=== PATIENT | male | born 1945 | race Caucasian/White ===

== ENCOUNTER 2024-03-26 09:05 | Outpatient (AMB) | payer OTHER, SELFPAY ==
--- NOTE | 2024-03-26 09:14 | MHC.OFFVIS ---
Vital Signs 03/26/24 09:17 Height 6 ft 1 in Weight 185 lb BMI 24.4 BP 106/68 Blood Pressure Location Rt brachial Position Sitting Respiration 16 Pulse 68 Pulse Source Pulse Oximeter Pulse Oximetry (%) 98 Oxygen Delivery Method Room Air Intake Visit Reasons: ENP-Cognitive Decline Intake Note: New pt presents to the office for consultation for cognitive decline. 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 The patient reports short term memory issues atleast for 1 year now.He has trouble with remembering appointments. 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 He drives OK. His helps with directions. He is OK with taking medications. He is independent in ADLs.His daughter take scare of his finances. 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 Both parents had dementia. 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 Colon polyp Actinic keratosis Family History Mother Cancer Father Dementia Social History Alcohol intake: current Alcohol intake frequency: holidays/special occasions only Patient Tobacco Use Status: Never used Tobacco Review of Systems Neuro Reports confusion Psych Reports confusion Physical Exam Vital Signs: Last Vital Signs Pulse 68 03/26/24 09:17 Resp 16 03/26/24 09:17 BP 106/68 03/26/24 09:17 Pulse Ox 98 03/26/24 09:17 Oxygen Delivery Method Room Air 03/26/24 09:17 BMI result Body Mass Index 24.4 Const General: cooperative, healthy appearing, comfortable and confusion Nutritional Appearance: average body habitus Orientation/consciousness: confusion Eyes Pupils: Equal, round and reactive pupils present Neck Neck: Yes no meningeal signs Neuro Other: MOCA 16 General: tone normal, moves all extremities, no meningeal signs, no focal motor deficits and confusion Cranial nerves: Yes Equal, round and reactive pupils present, Yes Bilaterally intact EOM present, Yes Nystagmus not present, Yes Normal facial strength present, Yes Midline tongue present, Yes Symmetric palate elevation present, Yes Ability to bilaterally rotate head present and Yes Ability to bilaterally elevate shoulders present Cognition (Neuro): abnormal cognition Gait exam (Neuro): Antalgic gait present Motor exam (neuro): 5/5 motor strength present throughout and Normal motor muscle tone present throughout Deep tendon reflexes (DTR's): Right triceps reflex intensity grade: 1+, Left triceps reflex intensity grade: 1+, Rt Biceps (C5, C6): 1+, Left biceps reflex intensity grade: 1+, Right brachioradialis reflex intensity grade: 1+, Left brachioradialis reflex intensity grade: 1+, Right patellar reflex intensity grade: 1+ and Left patellar reflex intensity grade: 1+ Coordination: [id number] test normal Psych Appearance: grossly normal Mental Status: mental status grossly normal Assessment & Plan Assessment & Plan (1) Dementia: Comment: linden ALzheimers Code(s): F03.90 - Unspecified dementia, unspecified severity, without behavioral disturbance, psychotic disturbance, mood disturbance, and anxiety Category: Medical Qualifiers: Dementia type: unspecified type Dementia behavioral or psychological symptom: without behavioral, psychotic, or mood disturbance or anxiety Plan I will evaluate him with MRI brain Labs- CBC CMP B 12 RAMO ESR TSH I will trial him on namenda 10 mg qd for 2 weeks then bid Consider Cognitive therapy Orders: Orders MR brain wo con w neuroquant Today F03.90 - Unspecified dementia, unspecified severity, without behavioral disturbance, psychotic disturbance, mood disturbance, and anxiety Comprehensive Met. Panel Today F03.90 - Unspecified dementia, unspecified severity, without behavioral disturbance, psychotic disturbance, mood disturbance, and anxiety RAMO Reflex Titer and Pattern Today F03.90 - Unspecified dementia, unspecified severity, without behavioral disturbance, psychotic disturbance, mood disturbance, and anxiety TSH reflex Free T4 Today F03.90 - Unspecified dementia, unspecified severity, without behavioral disturbance, psychotic disturbance, mood disturbance, and anxiety Vitamin B12 and Folate Today - Unspecified dementia, unspecified severity, without behavioral disturbance, psychotic disturbance, mood disturbance, and anxiety Erythrocyte Sedimentation Rate Today - Unspecified dementia, unspecified severity, without behavioral disturbance, psychotic disturbance, mood disturbance, and anxiety Complete Blood Count Auto Diff Today - Unspecified dementia, unspecified severity, without behavioral disturbance, psychotic disturbance, mood disturbance, and anxiety Medications: New memantine 1 tab qd for 2 weeks then 1 tab bid orally; 60 tabs 6RF Coding Level of Care Code New Pt Level 4 (44129) Complex EM visit Add On G2211 Diagnoses Dementia Dementia type: unspecified type Dementia behavioral or psychological symptom: without behavioral, psychotic, or mood disturbance or anxiety
[2024-03-26 09:17] VITALS: BP 106/68; PULSE 68; RESP 16; O2SAT 98; BMI 24.4
== END 2024-03-26 10:07 | disposition home or self-care (01) ==
PROVIDERS: PCP Internal Medicine; Visit Provider Psychiatry & Neurology Neurology
DX: F03.90 Unspecified dementia, unspecified severity, without behavioral disturbance, psychotic disturbance, mood disturbance, and anxiety (principal)
CPT/HCPCS: 99204; G2211

== ENCOUNTER → 2024-03-26 09:05 | Outpatient (BNVA) | payer OTHER, SELFPAY | PROVIDERS: PCP Internal Medicine; Visit Provider Psychiatry & Neurology Neurology ==

== ENCOUNTER 2024-03-26 10:08 | Outpatient (REF) | payer OTHER, SELFPAY ==
[2024-03-26 13:36] LABS: MANUAL DIFF FLAG NO
[2024-03-26 13:39] LABS: Basophils Absolute Auto 0.1 X10*3/uL (0.0-0.2); Basophils Percent Auto 0.8 % (0-2); Eosinophils Absolute Auto 0.1 X10*3/uL (0.0-0.4); Eosinophils Percent Auto 1.1 % (0-4); Hematocrit 46.8 % (42.0-52.0); Imm Gran Abs Auto 0.02 X10*3/uL (0.00-0.03); Imm Gran Pct Auto 0.3 % (0.0-0.4); Lymphocytes Percent Auto 15.9 % (20-40); Mean Corpuscular HGB Conc 34.2 g/dl (31.0-36.0); Mean Corpuscular Hemoglobin 31.9 pg (27.0-33.0); Mean Corpuscular Volume 93.4 fL (80.0-98.0); Mean Platelet Volume 9.4 fL (9.4-12.4); Monocytes Absolute Auto 0.5 X10*3/uL (0.1-1.2); Monocytes Percent Auto 7.7 % (2-11); Neutrophils Absolute Auto 4.7 x10*3/uL (2.0-8.3); Neutrophils Percent Auto 74.2 % (45-73); Platelet Count 302 X10*3/uL (160-400); Red Blood Count 5.01 X10*6/uL (4.60-5.80); Red Cell Distribution Width 12.8 % (11.0-16.0); White Blood Count 6.3 X10*3/uL (4.8-10.8)
[2024-03-26 14:04] LABS: Alanine Aminotransferase 29 U/L (0-40); Albumin Level 4.4 g/dL (3.5-5.0); Alkaline Phosphatase 85 U/L (39-117); Anion Gap 12 (12-20); Aspartate Amino Transferase 22 U/L (5-37); Bilirubin Total 0.5 mg/dL (0.0-1.0); Blood Urea Nitrogen 14 mg/dL (9-16); Calcium 9.8 mg/dL (8.4-10.2); Carbon Dioxide 27 mmol/L (22-29); Chloride 106 mmol/L (96-108); Estimated Glomerular Filt Rate > 60; Glucose Random 102 mg/dL (60-115); Potassium 4.7 mmol/L (3.3-5.1); Sodium 140 mmol/L (135-145); Total Protein 7.9 g/dL (6.5-8.0)
[2024-03-26 14:12] LABS: TSH reflex Free T4 1.58 uIU/mL (0.32-4.0)
[2024-03-26 14:23] LABS: Folate 14.2 ng/mL (> or = 4.0); Vitamin B12 479 pg/mL (200-900)
[2024-03-26 14:31] LABS: Erythrocyte Sedimentation Rate 8 MM/HR (0-15)
[2024-03-31 08:14] LABS: Anti Nuclear Antibody Screen NEGATIVE (NEGATIVE)
== END 2024-03-26 10:09 | disposition home or self-care (01) ==
LOC: HO.HKASLDS 10:08
PROVIDERS: Visit Provider Psychiatry & Neurology Neurology
DX: F03.90 Unspecified dementia, unspecified severity, without behavioral disturbance, psychotic disturbance, mood disturbance, and anxiety (principal)
CPT/HCPCS: 36415; 80053; 82607; 82746; 84443; 85025; 85652; 86038

== ENCOUNTER 2024-08-19 15:31 | Outpatient (AMB) | payer OTHER, SELFPAY ==
[2024-08-19 15:28] VITALS: BP 130/82; PULSE 68; O2SAT 97; BMI 24.5
--- NOTE | 2024-08-19 15:28 | MHC.OFFVIS ---
Vital Signs 08/19/24 15:28 Height 6 ft 1 in Weight 185 lb 8 oz BMI 24.5 BP 130/82 Blood Pressure Location Rt brachial Position Sitting Pulse 68 Pulse Source Pulse Oximeter Pulse Oximetry (%) 97 Oxygen Delivery Method Room Air Intake Visit Reasons: follow up Cognitive Decline-lvm to r/s dipika PATEL away Intake Note: Patient presents for follow up MRI done 04/09/24 and labs done 03/26/24 Accompanied by: Spouse Allergies No Known Allergies Allergy (Verified 08/19/24 15:34) Medication List - Last Reconciled 08/19/24 by Chelsey Thomson MD antiarthritic combination no.2 (glucosamine-chondroitin) mg PO ascorbic acid (vitamin C) mg PO cholecalciferol (vitamin D3) 25 mcg PO DAILY lutein 6 mg PO DAILY memantine 10 mg PO BID multivitamin 1 tab PO DAILY simvastatin 20 mg PO DAILY HPI Comments Details: 79y/o Right Handed male comes for follow up of cognitive issues. History form initial visit- The patient reports short term memory issues atleast for 1 year now.He has trouble with remembering appointments. 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 He drives OK. His helps with directions. He is OK with taking medications. He is independent in ADLs.His daughter takes care of his finances. 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 Both parents had dementia. 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 Colon polyp Actinic keratosis Family History Mother Cancer Father Dementia Social History Alcohol intake: current Alcohol intake frequency: holidays/special occasions only Patient Tobacco Use Status: Never used Tobacco Review of Systems Neuro Reports confusion Psych Reports confusion Physical Exam Vital Signs: Last Vital Signs Pulse 68 08/19/24 15:28 BP 130/82 08/19/24 15:28 Pulse Ox 97 08/19/24 15:28 Oxygen Delivery Method Room Air 08/19/24 15:28 BMI result Body Mass Index 24.5 Const General: cooperative, healthy appearing, comfortable and confusion Nutritional Appearance: average body habitus Orientation/consciousness: confusion Eyes Pupils: Equal, round and reactive pupils present Neck Neck: Yes no meningeal signs Neuro General: tone normal, moves all extremities, no meningeal signs, no focal motor deficits and confusion Cranial nerves: Yes Equal, round and reactive pupils present, Yes Bilaterally intact EOM present, Yes Nystagmus not present, Yes Normal facial strength present, Yes Midline tongue present, Yes Symmetric palate elevation present, Yes Ability to bilaterally rotate head present and Yes Ability to bilaterally elevate shoulders present Cognition (Neuro): abnormal cognition Gait exam (Neuro): Antalgic gait present Motor exam (neuro): 5/5 motor strength present throughout and Normal motor muscle tone present throughout Psych Appearance: grossly normal Mental Status: mental status grossly normal Orientation What is the (year) (season) (date) (day) (month)?: season, date, day and month Where are we (state) (county) (town or city) (hospital) (floor)?: state, town or city, hospital/clinic and floor Registration Name of 3 unrelated objects clearly and slowly, then ask patient to repeat all 3 of them. (1st repeat determines score. Make sure they can repeat all three): object 1, object 2 and object 3 Attention & Calculation (CHOOSE ONE) Spell WORLD backwards (DLROW): 2 letters Recall Ask patient to repeat the 3 items from question #3.: object 1, object 2 and object 3 Language Show patient a wristwatch & ask what it is. Repeat for pencil.: watch and pencil Ask the patient to repeat the phrase 'No ifs, ands, or buts' after you.: correct Ask the patient to 'take a piece of paper with their right hand' 'fold paper in half' 'place paper on floor': take paper in right hand and fold paper in half Print the sentence 'CLOSE YOUR EYES' on a piece. If patient actually closes eyes then score.: followed written direction Give patient a blank piece of paper & ask to write a sentence. Score if it contains a noun & verb.: sentence contains subject and verb Ask patient to copy figure of intersecting pentagons exactly. Score if all 10 angles & 2 intersects are included.: all 10 angles present & 2 are intersected Score Score: 24 Assessment & Plan Assessment & Plan (1) Dementia: Comment: linden ALzheimers Code(s): F03.90 - Unspecified dementia, unspecified severity, without behavioral disturbance, psychotic disturbance, mood disturbance, and anxiety Category: Medical Qualifiers: Dementia type: unspecified type Dementia behavioral or psychological symptom: without behavioral, psychotic, or mood disturbance or anxiety Dementia severity: moderate Qualified Code(s): F03.B0 - Unspecified dementia, moderate, without behavioral disturbance, psychotic disturbance, mood disturbance, and anxiety Plan MRI brain - no change since 2020 - mildly enlarged ventricles Labs- CBC CMP B 12 RAMO ESR TSH- normal Namenda 10 mg bid PET amyloid - to determine if he will benefit from ANtiamylid agents Orders: Orders PET Brain beta amyloid Today F03.B0 - Unspecified dementia, moderate, without behavioral disturbance, psychotic disturbance, mood disturbance, and anxiety Coding Level of Care Code Est Pt Level 4 (16456) Complex EM visit Add On G2211 Diagnoses Moderate dementia without behavioral disturbance, psychotic disturbance, mood disturbance, or anxiety, unspecified dementia type F03.B0 Dementia type: unspecified type Dementia behavioral or psychological symptom: without behavioral, psychotic, or mood disturbance or anxiety Dementia severity: moderate
== END 2024-08-19 16:00 | disposition home or self-care (01) ==
PROVIDERS: PCP Internal Medicine; Visit Provider Psychiatry & Neurology Neurology
DX: F03.B0 Unspecified dementia, moderate, without behavioral disturbance, psychotic disturbance, mood disturbance, and anxiety (principal)
CPT/HCPCS: 99214; G2211

== ENCOUNTER 2024-10-20 10:05 | Outpatient (AMB) | payer OTHER, SELFPAY ==
--- NOTE | 2024-10-20 10:04 | A.OFFVIS_ITS ---
Vital Signs 10/20/24 10:07 Height 6 ft 1 in Weight 182 lb BMI 24.0 BP 118/78 Blood Pressure Location Rt brachial Position Sitting Intake Visit Reasons: 3 mo follow up Intake Note: Patient presents follow up Dementia. PET scan in chart Allergies No Known Allergies Allergy (Verified 10/20/24 10:09) HPI Comments Details: 79y/o Right Handed male comes for follow up of cognitive issues. 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 The patient reports short term memory issues for about one year now, he is taking Memantine 10mg PO BID. He goes to bed at 11pm gets up 9am with one bathroom break. He has trouble remembering appointments. 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 He still drives OK. His helps with directions. He is OK with taking medications. He is independent in all his ADLs. His daughter takes care of his finances. 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 His mood, diet is stable, no constipation. Both parents had dementia, however unclear whether LBD, vascular or Alzheimers. 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 Colon polyp Actinic keratosis Family History Mother Cancer Father Dementia Social History Alcohol intake: current Alcohol intake frequency: holidays/special occasions only Patient Tobacco Use Status: Never used Tobacco Review of Systems Neuro Reports confusion Psych Reports confusion Physical Exam Vital Signs: Last Vital Signs BP 118/78 10/20/24 10:07 BMI result Body Mass Index 24.0 Const General: cooperative, healthy appearing, comfortable and confusion Nutritional Appearance: average body habitus Orientation/consciousness: confusion Eyes Pupils: Equal, round and reactive pupils present Neck Neck: Yes no meningeal signs Neuro General: tone normal, moves all extremities, no meningeal signs, no focal motor deficits and confusion Cranial nerves: Yes Equal, round and reactive pupils present, Yes Bilaterally intact EOM present, Yes Nystagmus not present, Yes Normal facial strength present, Yes Midline tongue present, Yes Symmetric palate elevation present, Yes Ability to bilaterally rotate head present and Yes Ability to bilaterally elevate shoulders present Cognition (Neuro): abnormal cognition Gait exam (Neuro): Antalgic gait present Motor exam (neuro): 5/5 motor strength present throughout and Normal motor muscl e tone present throughout Deep tendon reflexes (DTR's): Right triceps reflex intensity grade: 2+, Left triceps reflex intensity grade: 2+, Rt Biceps (C5, C6): 2+, Left biceps reflex intensity grade: 2+, Right brachioradialis reflex intensity grade: 2+, Left brachioradialis reflex intensity grade: 2+, Right patellar reflex intensity grade: 2+, Left patellar reflex intensity grade: 2+, Right ankle reflex intensity grade: 2+ and Left ankle reflex intensity grade: 2+ Coordination: [id number] test normal Psych Appearance: grossly normal Results Reviewed Results Reviewed: PETscan 09/15/2024 Positive scan for white matter changes and cerebral volume loss with scattered white matter hypo-densities, 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 Assessment & Plan Assessment & Plan (1) Dementia: Comment: linden ALzheimers Code(s): F03.90 - Unspecified dementia, unspecified severity, without behavioral disturbance, psychotic disturbance, mood disturbance, and anxiety Category: Medical Qualifiers: Dementia behavioral or psychological symptom: without behavioral, psychotic, or mood disturbance or anxiety Dementia severity: moderate Dementia type: unspecified type Qualified Code(s): F03.B0 - Unspecified dementia, moderate, without behavioral disturbance, psychotic disturbance, mood disturbance, and anxiety Plan Reviewed PET Amyloid with patient today, + scan with cerebral loss, will f/u with anti-amyloid therapy, considering Leqembi or Kisunla. APO E4 genetic testing, r/o susceptibility to bleeds during future trials of therapy. Labs are normal Continue Namenda 10 mg PO bid Orders: Orders RT home sleep study Today G47.19 - Other hypersomnia Medications: Refilled memantine 10 mg PO BID 60 tabs 6RF Patient Instructions: Sleep Hygiene provided: set a scheduled bedtime and wake time to help regulate the circadian rhythm and balance the release of pituitary hormones. Sleep in a dark room, temperatures below 68 degrees, and no devices n bed. Limit caffeinated products 6 hours prior to bed, and limit fluids 2-4 hours prior to bed. Gentle night yoga, diffusing essential oils, and playing soft music can be relaxing. Dementia Alzheimers + petgtan, discussed eating an omega 3 fatty acid rich diet, with flax, shelby seeds, and salmon or fatty fishes. Staying socially active with friends and family, doing puzzles daily and walking at least 30 min daily. Will send him for a HST to evaluate for Sleep apnea. APO E4 gene testing. Coding Level of Care Code Est Pt Level 4 (18586) Diagnoses Moderate dementia without behavioral disturbance, psychotic disturbance, mood disturbance, or anxiety, unspecified dementia type F03.B0 Dementia behavioral or psychological symptom: without behavioral, psychotic, or mood disturbance or anxiety Dementia severity: moderate Dementia type: unspecified type Time Spent (min) 30
[2024-10-20 10:07] VITALS: BP 118/78; BMI 24.0
--- OUTSIDE RECORDS SUMMARY | 2024-10-20 11:28 | XMS_ITS | Clinical Summary ---
Author Organization [facility] Address [address] [place] [address] Phone Care Team Providers Care Tape Duplicator Name Role Phone Phil Lee MD Primary Care Provider Encounters Date Type Department Care Team Description 09/08/2024 1:00 PM EDT - 09/08/2024 11:59 PM EDT Hospital Encounter [facility] PET Scan [address] [place] [address] Unspecified dementia, moderate, without behavioral disturbance, psychotic disturbance, mood disturbance, and anxiety (CMS/HCC V24, CMS/HCC V28) Discharge Disposition: Home or Self Care from Last 3 Months Social History Tobacco Use Types Packs/Day Years Used Date Smoking Tobacco: Never Assessed Sex and Gender Information Value Date Recorded Sex Assigned at Not on file Legal Sex Male 10:40 PM EST Gender Identity Not on file Sexual Orientation Not on file Plan of Treatment Health Maintenance Due Date Last Done Comments RSV Immunization Adult Patients (1 - 1-dose 75+ series) 2019 Cholesterol Screening (Lipid Panel) 08/27/2024 Depression Screening 08/27/2024 Falls Risk Assessment 08/27/2024 Social Influencers of Health Screening 08/27/2024 COVID-19 Vaccine (6 - Pfizer risk season) 2024 03/28/2024, 03/30/2023, 04/07/2021, Additional history exists DTaP,Tdap,and Td Vaccines (3 - Td or Tdap) 08/14/2034 08/14/2024, 10/31/2010 Pneumococcal Vaccine: 50+ Years Completed 05/10/2023, 12/21/2014, 10/31/2010 Zoster Vaccines Completed 05/25/2023, 05/24, 03/03/2014 Influenza Vaccine Completed 03/28/2024, , 03/24/2022, Additional history exists HIB Vaccines Aged Out No longer eligi ble based on patient's age to complete this topic HPV Vaccines Aged Out No longer eligi ble based on patient's age to complete this topic Hepatitis A Vaccines Aged Out No long er eligible based on patient's age to complete this topic Hepatitis B Vaccines Aged Out No long er eligible based on patient's age to complete this topic IPV Vaccines Aged Out No longer eligi ble based on patient's age to complete this topic MMR Vaccines Aged Out No longer eligi ble based on patient's age to complete this topic Meningococcal ACWY Vaccine Aged Out N o longer eligible based on patient's age to complete this topic Meningococcal B Vaccine Aged Out No l onger eligible based on patient's age to complete this topic RSV Immunization Patients Under 20 months Aged Out No longer eligible based on patient's age to complete this topic Varicella Vaccines Aged Out No longer eligible based on patient's age to complete this topic Procedures Procedure Name Priority Date/Time Associated Diagnosis Comments PET CT LIMITED AREA INITIAL Routine 09/08/2024 2:35 PM EDT Unspecified dementia, moderate, without behavioral disturbance, psychotic disturbance, mood disturbance, and anxiety ([facility] V24, [facility] V28) from Last 3 Months Results * PET CT Limited Area Initial (09/08/2024 2:35 PM EDT) Anatomical Region Laterality Modality Body Radiographic Ro ging 09/16/2024 9:18 AM EDT Impressions 09/29/2024 6:37 PM EDT Positive study This scan was interpreted using consensus imaging with another board certified radiologist, Dr. Dawson. Please note: The CT was acquired at a low radiation dose settings. ??The images are of nondiagnostic quality and used solely for purposes of attenuation correction and slice localization for the PET scan. ??If a diagnostic CT study is desired it must be ordered separately. -------- FINAL REPORT -------- Dictated By: Bee Arzate Dictated Date: 09/16/2024 09:18 ET Assigned Physician: Bee Arzate Reviewed and Electronically Signed By: Bee Arzate Signed Date: 09/29/2024 18:37 ET Workstation ID: [id number] Transcribed By: Self Edit Transcribed Date: 09/16/2024 11:12 ET Narrative 09/29/2024 6:37 PM EDT INDICATION: MODERATE DEMENTIA TECHNIQUE: F-18 Amyvid PET imaging was performed from of the head in a single acquisition with data set reconstructed in axial, coronal, and sagittal planes at the computer workstation with fused data from both the PET imaging study and attenuation correction CT. The CT portion of the examination was done strictly for attenuation correction and is not a true diagnostic CT examination. DLP: ??1173 mGy-cm Radiopharmaceutical: 9.4 mCi of F-18 Florbetapir IV. COMPARISON: Outside brain MRI dated March 2024 FINDINGS: HEAD AND NECK: Lack of mohan-white matter differentiation. 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 ??Hypodensity is again noted within the posterior fossa which has been previously described on prior outside MRI. ??There are scattered white matter hypodensities which are not cystic but may represent microangiopathic white matter change. ??Cerebral volume loss is noted. Procedure Note Bee Arzate MD - 09/29/2024 INDICATION: MODERATE DEMENTIA TECHNIQUE: F-18 Amyvid PET imaging was performed from of the head in asingle acquisition with data set reconstructed in axial, coronal, andsagittal planes at the computer workstation with fused data from both thePET imaging study and attenuation correction CT. The CT portion of theexamination was done strictly for attenuation correction and is not a truediagnostic CT examination. DLP: 1173 mGy-cm Radiopharmaceutical: 9.4 mCi of F-18 Florbetapir IV. COMPARISON: Outside brain MRI dated March 2024 FINDINGS: HEAD AND NECK: Lack of mohan-white matter differentiation. Enlargement of the lateral and third ventricles is again noted which mayrepresent normal pressure hydrocephalus. Hypodensity is again notedwithin the posterior fossa which has been previously described on prioroutside MRI. 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 Cerebralvolume loss is noted. IMPRESSION: Positive study This scan was interpreted using consensus imaging with another boardcertified radiologist, Dr. Dawson. Please note: The CT was acquired at a low radiation dose settings. The images are ofnondiagnostic quality and used solely for purposes of attenuationcorrection and slice localization for the PET scan. If a diagnostic CTstudy is desired it must be ordered separately. -------- FINAL REPORT -------- Dictated By: Bee Arzate Dictated Date: 09/16/2024 09:18 ET Assigned Physician: Bee Arzate Reviewed and Electronically Signed By: Bee Arzate Signed Date: 09/29/2024 18:37 ET Workstation ID: [id number] Transcribed By: Self Edit Transcribed Date: 09/16/2024 11:12 ET us Chelsey Thomson MD IMG NM PROCEDURES Final Result from Last 3 Months Care Teams Tape Duplicator Relationship Specialty Start Date End Date Phil Lee MD [address] [place] [address] PCP - General Internal Medicine 02/28/21
== END 2024-10-20 10:46 | disposition home or self-care (01) ==
LOC: HO.HSMS 10:06
PROVIDERS: PCP Internal Medicine; Visit Provider Physician Assistant Medical
DX: F03.B0 Unspecified dementia, moderate, without behavioral disturbance, psychotic disturbance, mood disturbance, and anxiety (principal)
CPT/HCPCS: 99214

== ENCOUNTER 2025-03-12 09:54 | Outpatient (AMB) | payer OTHER, SELFPAY ==
--- OUTSIDE RECORDS SUMMARY | 2025-03-12 10:25 | XMS_ITS | Clinical Summary ---
Author Organization [facility] Address [address] [place] [address] Phone Care Team Providers Care Hosiery Pairer Name Role Phone Phil Lee MD Primary Care Provider Social History Tobacco Use Types Packs/Day Years Used Date Smoking Tobacco: Never Assessed Sex and Gender Information Value Date Recorded Sex Assigned at Not on file Legal Sex Male 10:40 PM EST Gender Identity Not on file Sexual Orientation Not on file Plan of Treatment Health Maintenance Due Date Last Done Comments RSV Immunization Adult Patients (1 - 1-dose 75+ series) 2019 Depression Screening 06/24/2024 Cholesterol Screening (Lipid Panel) 08/27/2024 Falls Risk Assessment 08/27/2024 Social Influencers of Health Screening 08/27/2024 COVID-19 Vaccine ( season) 2025 03/28/2024, 03/30/2023, 04/07/2021, Additional history exists Influenza Vaccine (#1) 2025 , 03/30/2023, 03/24/2022, Additional history exists DTaP,Tdap,and Td Vaccines (3 - Td or Tdap) 08/14/2034 08/14/2024, 10/31/2010 Pneumococcal Vaccine: 50+ Years Completed 05/10/2023, 12/21/2014, 10/31/2010 Zoster Vaccines Completed 05/25/2023, 05/24, 03/03/2014 HIB Vaccines Aged Out No longer eligi [...] on patient's age to complete this topic Care Teams Hosiery Pairer Relationship Specialty Start Date End Date Phil Lee MD [address] [place] [address] PCP - General Internal Medicine 02/28/21
--- NOTE | 2025-03-12 10:27 | A.OFFVIS_ITS ---
Vital Signs 03/12/25 10:28 Height 6 ft 1 in Weight 181 lb 2 oz BMI 23.9 BP 112/74 Blood Pressure Location Rt brachial Position Sitting Pulse 61 Pulse Source Pulse Oximeter Pulse Oximetry (%) 97 Oxygen Delivery Method Room Air Intake Visit Reasons: 3 mo follow up Intake Note: Patient presents follow up Dementia. 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 handed male presents for follow up of cognitive issues. 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 November 2024 His , he is processing grief, on Memantine now and imp roved per Natalya. 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 Tremors Bilateral uppper extremity tremors worse with action, r>l. and Difficulty turning over in sleep. Driving he gets lost when driving long distances, does not drive at night and only drives locally. Cognitive memory has declined, routinely forgets what he is going to do, forgets names, appts, repeats questions, conversations and needs direction with visual cues. Interacting with new technology is a barrier especially on devices. Cell phone and home phone voicemail retrieval confusion. Gait leans to the left side when walking, shuffles his feet, r. arm does not swing. Lives in an asst living facility 5x a day and they manage the medications [facility] [employer] [facility]. Memantine 28mg PO. Goes to sleep at 11pm and gets up at 7am, and gets up 2 x a night for the bathroom. Social activity he walks daily about 3 miles with his dog Tiny and [place] friends at the [place]. No longer on committees. Medications he is okay with taking meds, will increase Memantine to 28mg po qhs. Finances Natalya daughter is HCP takes care of all financial decisions. Diet is stable no difficulty with drooling or dyshphagia. BM daily. Mood has improved since starting Memantine. MMSE is 14 today. FH of Parkinson denies. Both parents had dementia, however unclear whether LBD, vascular or Alzheimers. F/u with Dr. 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 Colon polyp Actinic keratosis Family History Mother Cancer Father Dementia Social History Alcohol intake: current Alcohol intake frequency: holidays/special occasions only Patient Tobacco Use Status: Never used Tobacco Review of Systems Neuro Reports confusion Psych Reports confusion Physical Exam Vital Signs: Last Vital Signs Pulse 61 03/12/25 10:28 BP 112/74 03/12/25 10:28 Pulse Ox 97 03/12/25 10:28 Oxygen Delivery Method Room Air 03/12/25 10:28 BMI result Body Mass Index 23.9 Const General: cooperative, healthy appearing, comfortable and confusion Nutritional Appearance: average body habitus Orientation/consciousness: confusion Eyes Pupils: Equal, round and reactive pupils present Neck Neck: Yes no meningeal signs Neuro Other: RUE tremor>L oral tremor Decreased arm swing. Hypophonia Gait leans to the left/ shuffling of feet MMSE is 14 today General: tone normal, moves all extremities, no meningeal signs, no focal motor deficits and confusion Cranial nerves: Yes Equal, round and reactive pupils present, Yes Bilaterally intact EOM present, Yes Nystagmus not present, Yes Normal facial strength present, Yes Midline tongue present, Yes Symmetric palate elevation present, Yes Ability to bilaterally rotate head present and Yes Ability to bilaterally elevate shoulders present Cognition (Neuro): abnormal cognition Gait exam (Neuro): Antalgic gait present Motor exam (neuro): 5/5 motor strength present throughout and Normal motor muscle tone present throughout Coordination: [id number] test normal Psych Appearance: grossly normal Orientation What is the (year) (season) (date) (day) (month)?: season and day Where are we (state) (county) (town or city) (hospital) (floor)?: state, hospital/clinic (needs cueing) and floor Attention & Calculation (CHOOSE ONE) Ask pt to begin with 100 & count backward by 7. Stop after 5 repeats. If pt cannot ask them to spell the word WORLD backward.: 93 Recall Ask patient to repeat the 3 items from question #3.: object 1 Language Show patient a wristwatch & ask what it is. Repeat for pencil.: watch and pencil Ask the patient to 'take a piece of paper with their right hand' 'fold paper in half' 'place paper on floor': take paper in right hand, fold paper in half and place paper on floor Print the sentence 'CLOSE YOUR EYES' on a piece. If patient actually closes eyes then score.: followed written direction Give patient a blank piece of paper & ask to write a sentence. Score if it c ontains a noun & verb.: sentence contains subject and verb Score Score: 14 Assessment & Plan Assessment & Plan (1) Dementia: Comment: linden ALzheimers Code(s): F03.90 - Unspecified dementia, unspecified severity, without behavioral disturbance, psychotic disturbance, mood disturbance, and anxiety Category: Medical Qualifiers: Dementia behavioral or psychological symptom: without behavioral, psychotic, or mood disturbance or anxiety Dementia severity: moderate Dementia type: unspecified type Qualified Code(s): F03.B0 - Unspecified dementia, moderate, without behavioral disturbance, psychotic disturbance, mood disturbance, and anxiety (2) Cognitive decline: Comment: MMSE is 14 Code(s): R41.89 - Other symptoms and signs involving cognitive functions and awareness Category: Medical (3) of family member: Comment: passed November 2024 Code(s): Z63.4 - Disappearance and of family member Category: Social Hx Plan HST to r/o ashvin of a family member Grief Processing therapy as needed. Reviewed PET Amyloid with patient today, + scan with cerebral loss, will f/u with anti-amyloid therapy, considering Leqembi or Kisunla. if pt. / family daughter Natalya HOWARD is amenable. APO E4 genetic testing, r/o susceptibility to bleeds during future trials of therapy. Labs will submit to r/o anemia / deficiencies. Dementia Increase Namenda to 28mg po qhs daily maintenance dose will send to [facility]. Health Care Proxy to call: Natalya his daughter is here with him and is the healthcare proxy now please contact her for all matters: [phone] Orders: Orders Complete Blood Count no Diff 03/12/25 F03.B0 - Unspecified dementia, moderate, without behavioral disturbance, psychotic disturbance, mood disturbance, and anxiety Comprehensive Met. Panel 03/12/25 F03.B0 - Unspecified dementia, moderate, without behavioral disturbance, psychotic disturbance, mood disturbance, and anxiety Ferritin 03/12/25 F03.B0 - Unspecified dementia, moderate, without behavioral disturbance, psychotic disturbance, mood disturbance, and anxiety Methylmalonic Acid 03/12/25 F03.B0 - Unspecified dementia, moderate, without behavioral disturbance, psychotic disturbance, mood disturbance, and anxiety, G47.9 - Sleep disorder, unspecified, R53.83 - Other fatigue Vitamin D 25-OH Total 03/12/25 F03.B0 - Unspecified dementia, moderate, without behavioral disturbance, psychotic disturbance, mood disturbance, and anxiety Vitamin B6 03/12/25 F03.B0 - Unspecified dementia, moderate, without behavioral disturbance, psychotic disturbance, mood disturbance, and anxiety Vitamin B12 and Folate 03/12/25 F03.B0 - Unspecified dementia, moderate, without behavioral disturbance, psychotic disturbance, mood disturbance, and anxiety TSH reflex Free T4 03/12/25 F03.B0 - Unspecified dementia, moderate, without behavioral disturbance, psychotic disturbance, mood disturbance, and anxiety RT home sleep study 03/12/25 G47.19 - Other hypersomnia Homocysteine 03/12/25 F03.B0 - Unspecified dementia, moderate, without behavioral disturbance, psychotic disturbance, mood disturbance, and anxiety, G47.9 - Sleep disorder, unspecified, R53.83 - Other fatigue Vitamin B1 03/12/25 F03.B0 - Unspecified dementia, moderate, without behavioral disturbance, psychotic disturbance, mood disturbance, and anxiety Other Ref Test - Misc 03/12/25 F02.80 - Dementia in other diseases classified elsewhere, unspecified severity, without behavioral disturbance, psychotic disturbance, mood disturbance, and anxiety, G30.9 - Alzheimer's disease, unspecified Medications: New memantine Continue 28mg PO daily for ongoing maintenance therapy. 28 mg PO DAILY 90 ea 3RF dementia 3 months MDD 28mg po F03.B0 - Unspecified dementia, moderate, without behavioral disturbance, psychotic disturbance, mood disturbance, and anxiety, R41.89 - Other symptoms and signs involving cognitive functions and awareness Discontinued memantine Discontinued Reason: Doctor's Order 10 mg PO BID 60 tabs 6RF Patient Instructions: Sleep Hygiene provided: set a scheduled bedtime and wake time to help regulate the circadian rhythm and balance the release of pituitary hormones. Sleep in a dark room, temperatures below 68 degrees, and no devices n bed. Limit caffeinat ed products 6 hours prior to bed, and limit fluids 2-4 hours prior to bed. Gentle night yoga, diffusing essential oils, and playing soft music can be relaxing. Coding Level of Care Code Est Pt Level 4 (85221) Diagnoses Moderate dementia without behavioral disturbance, psychotic disturbance, mood disturbance, or anxiety, unspecified dementia type F03.B0 Dementia behavioral or psychological symptom: without behavioral, psychotic, or mood disturbance or anxiety Dementia severity: moderate Dementia type: unspecified type Cognitive decline R41.89 of family member Z63.4
[2025-03-12 10:28] VITALS: BP 112/74; PULSE 61; O2SAT 97; BMI 23.9
== END 2025-03-12 12:04 | disposition home or self-care (01) ==
LOC: HO.HSMS 09:54
PROVIDERS: PCP Internal Medicine; Visit Provider Physician Assistant Medical
DX: F03.B0 Unspecified dementia, moderate, without behavioral disturbance, psychotic disturbance, mood disturbance, and anxiety (principal); R41.89 Other symptoms and signs involving cognitive functions and awareness; Z63.4 Disappearance and death of family member
CPT/HCPCS: 99214